=== PATIENT | male | born 1990 | race Caucasian/White ===

== ENCOUNTER 2018-04-14 06:21 | Inpatient (IN) | END 2018-04-17 17:41 | DRG 871 ==

== ENCOUNTER 2018-04-18 02:23 | Inpatient (IN) | END 2018-04-19 16:42 | disposition home or self-care (01) | DRG 309 ==

== ENCOUNTER 2018-07-03 15:00 | Inpatient (IN) | payer OTHER ==
[~2018-07-03] VITALS: Ht 172.7 cm; Wt 77.5 kg
[~2018-07-03 15:00] MED LIST: ACET325T45 PO; ASCO500C7 PO; ATOR20TA38 PO; BACL10TA PO; BEN50 PO; BISA10SU22 RC; DIAZ5TAB4 PO; DICL100G37 TOP; DOCU-159 PO; DOXY100T20 PO; FENO135C4 PO; FLUO10CA17 PO; GABA300C16 PO; GLUC-158 PO; GUAI1CAP9 PO; HYDR-3980 PO; IBUP200C11 PO; INSU100C SQ; LEVO750T25 PO; LINA290C PO; LOPE2CAP PO; MAGN400O19 PO; METF-849 PO; MORP15TA92 PO; PHEN1SUP80 PR; POLY17PO6 PO; RANI300T PO; SITA100T11 PO; TAMS0.4C2 PO; TIZA4CAP6 PO; UDMYL PO; ZOLP10TA5 PO
[2018-07-03] MEDS ORDERED: SOD CHLORIDE 0.9% 1,000 ML IV STA ×2 (15:22→19:18)
[2018-07-03] MEDS ORDERED: BACL10TA PO (17:15)
[2018-07-03] MEDS ORDERED: PHEN1SUP80 PR (17:16)
[2018-07-03] MEDS ORDERED: ASC500 PO (17:17)
[2018-07-03] MEDS ORDERED: RANI300T PO (17:18)
[2018-07-03] MEDS ORDERED: BISA10SU75 PR (17:18)
[2018-07-03] MEDS ORDERED: CLI60SOL TOP (17:19)
[2018-07-03] MEDS ORDERED: GABA300C16 PO (17:19)
[2018-07-03] MEDS ORDERED: TAMS0.4C2 PO (17:20)
[2018-07-03] MEDS ORDERED: FLUO10CA17 PO (17:20)
[2018-07-03] MEDS ORDERED: FENO135C4 PO (17:22)
[2018-07-03] MEDS ORDERED: [UNRECOGNIZED DRUG - CODE] PO (17:22)
[2018-07-03] MEDS ORDERED: ATOR10TA65 PO (17:23)
[2018-07-03] MEDS ORDERED: RISP2TAB3 PO (17:24)
[2018-07-03] MEDS ORDERED: LINA290C PO (17:25)
[2018-07-03] MEDS ORDERED: TIZA4CAP PO (17:26)
[2018-07-03] MEDS ORDERED: ZOLP10TA5 PO (17:26)
[2018-07-03] MEDS ORDERED: POLY17PO6 PO (17:27)
[2018-07-03] MEDS ORDERED: HYDR-3980 PO (17:28)
[2018-07-03] MEDS ORDERED: DIAZ5TAB4 PO (17:29)
[2018-07-03] MEDS ORDERED: PHEN57OI RC (17:32)
[2018-07-03] MEDS ORDERED: UDMYL PO (17:34)
[2018-07-03] MEDS ORDERED: MIDO10TA PO (17:35)
[2018-07-03] MEDS ORDERED: IPRA3AMP29 INHALATION (17:35)
[2018-07-03] MEDS ORDERED: MAGN400O19 PO (17:36)
[2018-07-03] MEDS ORDERED: METH10TA2 PO (17:37)
[2018-07-03] MEDS ORDERED: [UNRECOGNIZED DRUG - REMARK] PO (17:40)
[2018-07-03] MEDS ORDERED: [UNRECOGNIZED DRUG - CODE] PO (17:41)
[2018-07-03] MEDS ORDERED: SOD CHLORIDE 0.9% 1,000 ML IV SCH (19:20)
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
[2018-07-03] MEDS ORDERED: ONDANSETRON 4 MG INJ IV PRN ×2 (19:30→20:00)
[2018-07-03] MEDS ORDERED: ERTAPENEM SODIUM 1 GM in SOD CHLORIDE 0.9% 100 ML IVPB ONE (19:30)
[2018-07-03] MEDS ORDERED: ACETAMINOPHEN 325 MG TAB PO PRN (19:30)
[2018-07-03] MEDS ORDERED: METOCLOPRAMIDE 10 MG INJ IV PRN (20:00)
[2018-07-03] MEDS ORDERED: BISACODYL (EC) 5 MG TAB PO PRN (20:00)
[2018-07-03] MEDS ORDERED: DOCUSATE SODIUM 100 MG CAP PO PRN (20:00)
[2018-07-03] MEDS ORDERED: NACL 0.9% 3 ML SYG IV SCH (20:00)
[2018-07-03] MEDS: DEXTROSE 5%-0.45% NACL 1,000 ML IV SCH (20:11)
[2018-07-03] MEDS ORDERED: POTASSIUM CHLORIDE (SR) 20 MEQ TAB PO STA (20:53)
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
[2018-07-03] MEDS ORDERED: morphine 2 MG INJ IV STA (21:49)
[2018-07-04] VITALS (22 sets, daily range): BP systolic 94–145; BP diastolic 52–116; PULSE 84–108; RESP 16–20; Ht 172.7 cm; Wt 77.5 kg
[2018-07-04] MEDS: RISPERIDONE 2 MG TAB PO SCH (00:05)
[2018-07-04] MEDS: POTASSIUM CHLORIDE 100 ML IVPB SCH ×2 (03:28→05:58)
[2018-07-04] MEDS: morphine 2 MG INJ IV PRN ×3 (03:32→18:29)
[2018-07-04] MEDS: DEXTROSE 5%-0.45% NACL 1,000 ML IV SCH ×2 (05:58→15:37)
[2018-07-04] MEDS ORDERED: VANCOMYCIN IV PER PHARMACY XX SCH (07:30)
[2018-07-04] MEDS: PIPER-TAZO 3.375 GM IV (PMX) 100 ML IVPB SCH ×3 (08:29→17:04)
[2018-07-04] MEDS: ENOXAPARIN 40 MG/0.4 ML SYG SC SCH (08:35)
[2018-07-04] MEDS ORDERED: VANCOMYCIN HCL 1.5 GM in SOD CHLORIDE 0.9% 250 ML IVPB SCH (09:00)
[2018-07-04] MEDS: INSULIN ASPART [NOVOLOG] 3 ML PEN SC SCH ×3 (11:28→23:32)
[2018-07-04] MEDS ORDERED: GLUCAGON 1 MG INJ IM PRN (11:30)
[2018-07-04] MEDS ORDERED: GLUCOSE GEL 15 GRAM TUBE BUCCAL PRN (11:30)
[2018-07-04] MEDS ORDERED: DEXTROSE 50% 50 ML SYRINGE IV PRN (11:30)
[2018-07-04] MEDS ORDERED: GLUCOSE GEL 15 GRAM TUBE PO PRN ×2 (11:30)
[2018-07-04] MEDS: KETOROLAC 15 MG INJ IV PRN ×2 (14:31→21:01)
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
[2018-07-04] MEDS ORDERED: VANCOMYCIN 1 GM 250 ML IVPB SCH (21:00)
[2018-07-04] MEDS: ZOLPIDEM 5 MG TAB PO PRN (23:15)
[2018-07-05] VITALS (24 sets, daily range): BP systolic 98–127; BP diastolic 63–84; PULSE 63–96; RESP 20–23
[2018-07-05] MEDS: morphine 2 MG INJ IV PRN ×3 (01:06→09:05)
[2018-07-05] MEDS: ACCU-CHEK XX SCH (02:00)
[2018-07-05] MEDS: INSULIN ASPART [NOVOLOG] 3 ML PEN SC SCH ×3 (06:00→17:21)
[2018-07-05] MEDS: BACLOFEN 10 MG TAB PO SCH ×3 (09:05→21:05)
[2018-07-05] MEDS: GABAPENTIN 300 MG CAP PO SCH ×3 (09:05→21:06)
[2018-07-05] MEDS: ENOXAPARIN 40 MG/0.4 ML SYG SC SCH (09:06)
[2018-07-05] MEDS: METHADONE 10 MG TAB PO SCH ×2 (09:10→21:06)
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
[2018-07-05] MEDS: HYDROCODONE/APAP (5/325) TAB PO PRN ×2 (15:55→21:25)
[2018-07-05] MEDS: RISPERIDONE 2 MG TAB PO SCH (21:00)
[2018-07-05] MEDS: TIZANIDINE 2 MG TAB PO PRN (21:05)
[2018-07-05] MEDS: SENNA TAB PO SCH (21:06)
[2018-07-05] MEDS: ZOLPIDEM 5 MG TAB PO PRN (21:28)
[2018-07-06] VITALS (22 sets, daily range): BP systolic 98–130; BP diastolic 66–84; PULSE 51–75; RESP 20–23
[2018-07-06] MEDS: ACETAMINOPHEN 325 MG TAB PO PRN ×2 (00:17→03:59)
[2018-07-06] MEDS: DIAZEPAM 5 MG TAB PO PRN ×2 (00:17→23:18)
[2018-07-06] MEDS: INSULIN ASPART [NOVOLOG] 3 ML PEN SC SCH ×5 (00:25→23:21)
[2018-07-06] MEDS: ACCU-CHEK XX SCH (02:00)
[2018-07-06] MEDS: HYDROCODONE/APAP (5/325) TAB PO PRN ×3 (03:58→19:30)
[2018-07-06] MEDS: GABAPENTIN 300 MG CAP PO SCH ×3 (09:01→21:01)
[2018-07-06] MEDS: METHADONE 10 MG TAB PO SCH ×2 (09:01→21:56)
[2018-07-06] MEDS: BACLOFEN 10 MG TAB PO SCH ×3 (09:01→21:00)
[2018-07-06] MEDS: POLYETHYLENE GLYCOL 17 GM PACKET PO SCH (09:01)
[2018-07-06] MEDS: TIZANIDINE 2 MG TAB PO PRN (09:02)
[2018-07-06] MEDS: SENNA TAB PO SCH ×2 (09:02→21:01)
[2018-07-06] MEDS: ENOXAPARIN 40 MG/0.4 ML SYG SC SCH (10:02)
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
[2018-07-06] MEDS: DICLOFENAC SODIUM 1% GEL 100 GM TUBE TP SCH ×2 (17:17→21:02)
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
[2018-07-06] MEDS: RISPERIDONE 2 MG TAB PO SCH (21:02)
[2018-07-06] MEDS: ZOLPIDEM 5 MG TAB PO PRN (21:56)
[2018-07-07] VITALS (23 sets, daily range): BP systolic 107–122; BP diastolic 61–76; PULSE 58–92; RESP 18–35
[2018-07-07] MEDS: ACCU-CHEK XX SCH (02:00)
[2018-07-07] MEDS: INSULIN ASPART [NOVOLOG] 3 ML PEN SC SCH ×3 (05:39→17:48)
[2018-07-07] MEDS: DICLOFENAC SODIUM 1% GEL 100 GM TUBE TP SCH ×4 (08:11→21:41)
[2018-07-07] MEDS: SENNA TAB PO SCH ×2 (09:00→21:35)
[2018-07-07] MEDS: METHADONE 10 MG TAB PO SCH ×2 (09:00→21:40)
[2018-07-07] MEDS: GABAPENTIN 300 MG CAP PO SCH ×3 (09:00→21:34)
[2018-07-07] MEDS: ENOXAPARIN 40 MG/0.4 ML SYG SC SCH (09:00)
[2018-07-07] MEDS: POLYETHYLENE GLYCOL 17 GM PACKET PO SCH (09:00)
[2018-07-07] MEDS: BACLOFEN 10 MG TAB PO SCH ×3 (09:00→21:35)
--- NOTE | 2018-07-07 09:16 | PREAC ---
Date/Time of Note Date/Time of Note DATE: 07/07/18 TIME: 09:16 Anesthesia Eval and Record Evaluation Time Pre-Procedure Interview DATE: 07/07/18 TIME: 09:16 Age 28 Sex male NPO: 8 hrs Preoperative diagnosis dysphagia Planned procedure PEG Past Medical History Past Medical History: Includes Cardio: Dyslipidemia Pulm: Other (resp failure) Neuro: Other (paraplegia) Heme: Anemia Surgery & Anesthesia Issues No known issue Meds Anticoagulation: No Beta Rubens within 24 hr: No Reason Beta Rubens not given: Pt. not on B-Rubens Reported Medications Calcium Phosphate Trib/Vit D3 (Calcium + Vitamin D3 Gummies) 1 Each Tab.chew, 2 EACH PO DAILY, TAB.CHEW 07/03/18 [Marijuana Cook] No Conflict Check, 2 PO QHS GIVE 2 COOKIES QHS AND PRN FOR PAIN MANAGEMENT. DO NOT COMBINE WITH OTHER MARIJUANA PRODUCTS. 07/03/18 Methadone Hcl* (Methadone*) 10 Mg Tab, 10 MG PO Q12, TAB 07/03/18 Magnesium Hydroxide* (Milk Of Magnesia*) 400 Mg/5 Ml Oral.susp, 30 ML PO Q24H PRN for NEEDED, ML 07/03/18 Midodrine* (Midodrine*) 10 Mg Tablet, 10 MG PO TID, TAB 07/03/18 Ipratropium-Albuterol (Ipratropium-Albuterol) 0.5-3 Mg/3 Ml Ampul.neb, 3 ML INHALATION Q4 PRN for prn, #30 VIAL 07/03/18 Magaldrate/Simethicone* (Mag-Al Plus Suspension*) 30 Ml Oral.susp, 30 ML PO BID PRN for GASTROINTESTINAL UPSET, ML 07/03/18 Phenyleph/Mineral Oil/Petrolat (Major-Prep Hemorrhoidal Oint) Unknown Strength Oint.appl, 0.25 RC DAILY Apply to ANAL area one time a day as needed for hemorrhoids 07/03/18 Diazepam* (Diazepam*) 5 Mg Tablet, 5 MG PO TID PRN for PRN, TAB 07/03/18 Hydrocodone/Acetaminophen ([place] 10-325 Tablet) 1 Each Tablet, 1 EACH PO Q3H PRN for PAIN 7-1010, TAB 07/03/18 Polyethylene Glycol* (Miralax*) 17 Gm Powd.pack, 17 GM PO BID, #60 PACKET 3/5/19 Zolpidem Tartrate* (Zolpidem Tartrate*) 10 Mg Tablet, 10 MG PO QHS PRN for INSOMNIA, #30 TAB 07/03/18 Tizanidine Hcl* (Zanaflex*) 4 Mg Capsule, 6 MG PO Q8H PRN for SPASTICITY, CAP 07/03/18 Linaclotide (LINZESS) 290 Mcg Capsule, 290 MCG PO DAILY, #30 CAP 07/03/18 Risperidone* (Risperidone*) 2 Mg Tablet, 4 MG PO QHS, TAB 07/03/18 Atorvastatin Calcium (Atorvastatin Calcium) 10 Mg Tablet, 10 MG PO QHS, #30 TAB 07/03/18 Tetracycline Hcl* (Tetracycline Hcl*) 500 Mg Cap, 500 MG PO BID, CAP 07/03/18 Fenofibric Acid (Choline) (Fenofibric Acid) 135 Mg Capsule.dr, 270 MG PO QHS, TAB 07/03/18 Tamsulosin Hcl* (Tamsulosin Hcl*) 0.4 Mg Cap.er.24h, 0.4 MG PO HS, CAP 07/03/18 Fluoxetine Hcl* (Fluoxetine Hcl*) 10 Mg Capsule, 10 MG PO DAILY, CAP 07/03/18 Clindamycin* Topical (Clindamycin* Topical) 1 %-60 Ml Solution, 1 APPLIC TOP BID , EA 07/03/18 Gabapentin* (Gabapentin*) 300 Mg Capsule, 300 MG PO TID, #90 CAP 07/03/18 Ranitidine Hcl* (Ranitidine Hcl*) 300 Mg Tablet, 300 MG PO QHS, #30 TAB 07/03/18 Bisacodyl* (Bisacodyl*) 10 Mg Supp, 10 MG OR DAILY, SUPP 07/03/18 Ascorbic Acid (Vitamin C) 500 Mg Tab, 500 MG PO BID, TAB 07/03/18 Phenylephrine HCl/[place] Butter* (Preparation H* Suppository) 1 Each Supp.rect, 1 EACH OR QHS, SUPP.RECT 07/03/18 Baclofen* (Baclofen*) 10 Mg Tablet, 10 MG PO TID, TAB 07/03/18 Discontinued Reported Medications Zolpidem Tartrate* (Zolpidem Tartrate*) 10 Mg Tablet, 10 MG PO QHS PRN for INSOMNIA, #30 TAB 04/14/18 Ibuprofen* (Advil*) 200 Mg Capsule, 200 MG PO Q6H PRN for PAIN, CAP 04/14/18 Diclofenac Sodium* (Voltaren* Gel) 1% -100 Gm Gel, 2 GM TOP QID, #1 TUB 04/14/18 Loperamide Hcl* (Imodium*) 2 Mg Capsule, 2 MG PO Q6H PRN for DIARRHEA, CAP MAX 16 mg/day 04/14/18 Acetaminophen* (Acetaminophen*) 325 Mg Tablet, 325 MG PO Q4H PRN for PAIN AND OR ELEVATED TEMP, #30 TAB 04/14/18 Diphenhydramine Hcl* (Benadryl*) 50 Mg Cap, 50 MG PO Q6 PRN for ITCHING, CAP 04/14/18 Magaldrate/Simethicone* (Mag-Al Plus Suspension*) 30 Ml Oral.susp, 30 ML PO BID PRN for GASTROINTESTINAL UPSET, ML 04/14/18 Hydrocodone/Acetaminophen ([place] 10-325 Tablet) 1 Each Tablet, 1 EACH PO, TAB 04/14/18 Polyethylene Glycol* (Miralax*) 17 Gm Powd.pack, 17 GM PO BID, #60 PACKET 04/14/18 Linaclotide (LINZESS) 290 Mcg Capsule, 290 MCG PO DAILY, #30 CAP 04/14/18 Diazepam* (Diazepam*) 5 Mg Tablet, 5 MG PO TID, TAB 04/14/18 Morphine Sulfate* (Ms Contin*) 15 Mg Tablet.sa, 15 MG PO Q12, TAB 04/14/18 Magnesium Hydroxide* (Milk Of Magnesia*) 400 Mg/5 Ml Oral.susp, 30 ML PO BID, ML 04/14/18 Insulin Lispro (Humalog) 100 Unit/1 Ml Cartridge, 100 UNIT SQ SS, EA 04/14/18 Metformin* (Glucophage*) 500 Mg Tab, 500 MG PO TID, #60 TAB 04/14/18 Diazepam* (Diazepam*) 5 Mg Tablet, 5 MG PO BID, TAB 04/14/18 Docusate Sodium* (Docusate Sodium*) 100 Mg Capsule, 100 MG PO BID, #60 CAP 04/14/18 Tizanidine Hcl* (Tizanidine Hcl*) 4 Mg Capsule, 5.5 MG PO Q6H PRN for SPASTICITY, CAP 04/14/18 Guaifenesin/P-Ephed Hcl (Respaire-30 Capsule) 1 Each Capsule, 2 EACH PO, CAP 04/14/18 Atorvastatin Calcium* (Atorvastatin Calcium*) 20 Mg Tablet, 20 MG PO QHS, #30 TAB 04/14/18 Bisacodyl (FAST RELIEF LAXATIVE) 10 Mg Supp.rect, 10 MG RC QPM, SUPP.RECT 04/14/18 Phenylephrine HCl/[place] Butter* (Preparation H* Suppository) 1 Each Supp.rect, 1 EACH OR QHS, SUPP.RECT 04/14/18 Sitagliptin* (Januvia*) 100 Mg Tablet, 100 MG PO DAILY, #30 TAB 04/14/18 Fenofibric Acid (Choline) (Fenofibric Acid) 135 Mg Capsule.dr, 170 MG PO QHS, TAB 04/14/18 Glucosam/Msm/Chond/Hyaluron Ac (SV GLUCOSAMINE-CHONDROITIN TAB) 1 Each Tablet, 1 EACH PO QHS, TAB 04/14/18 Tamsulosin Hcl* (Tamsulosin Hcl*) 0.4 Mg Cap.er.24h, 0.4 MG PO HS, CAP 04/14/18 Fluoxetine Hcl* (Fluoxetine Hcl*) 10 Mg Capsule, 10 MG PO DAILY, CAP 04/14/18 Gabapentin* (Gabapentin*) 300 Mg Capsule, 300 MG PO TID, #90 CAP 04/14/18 Ranitidine Hcl* (Ranitidine Hcl*) 300 Mg Tablet, 300 MG PO HS, #30 TAB 04/14/18 Ascorbic Acid* (Vitamin C*) 500 Mg Capsule.sa, 500 MG PO BID, CAP 04/14/18 Baclofen* (Lioresal*) 10 Mg Tab, 30 MG PO Q8H PRN for MUSCLE SPASMS, TAB 04/14/18 Discontinued Scripts Doxycycline Hyclate* (Doxycycline Hyclate*) 100 Mg Tablet.dr, 100 MG PO BID for 5 Days, #5 TAB Prov:BENITO MCDONOUGH S. 04/19/18 Levofloxacin* (Levaquin*) 750 Mg Tablet, 750 MG PO DAILY for 5 Days, #5 TAB Prov:BENITO MCDONOUGH S. 04/19/18 Current Medications IV Flush (NS 3 ml) 3 ml PER PROTOCOL IV ; Start 07/03/18 at 20:00 Ondansetron HCl (Zofran Inj) 4 mg Q6H PRN IV NAUSEA/VOMITING; Start 07/03/18 at 20:00 Metoclopramide HCl (Reglan) 10 mg Q6H PRN IV NAUSEA/VOMITING; Start 07/03/18 at 20:00 Acetaminophen (Tylenol Tab) 650 mg Q6H PRN PO .PAIN 1-3 OR TEMP Last administered on 07/06/18at 03:59; Admin Dose 650 MG; Start 07/03/18 at 20:00 Docusate Sodium (Colace) 100 mg Q12H PRN PO .CONSTIPATION; Start 07/03/18 at 20:00 Bisacodyl (Dulcolax) 5 mg DAILY PRN PO .CONSTIPATION; Start 07/03/18 at 20:00 Enoxaparin Sodium (Lovenox) 40 mg DAILY SC Last administered on 07/06/18at 10:02; Admin Dose 40 MG; Start 07/04/18 at 09:00 Diagnostic Test (Pha) (Accu-Chek) 1 ea 02 XX ; Start 07/05/18 at 02:00 Insulin Aspart (Novolog Insulin Pen) NOVOLOG *MILD* ALGORI... Q6 SC Last administered on 07/06/18at 17:44; Admin Dose 1 UNIT; Start 07/04/18 at 12:00 Miscellaneous Information 1 ea NOTE XX ; Start 07/04/18 at 11:30 Glucose (Glutose) 15 gm Q15M PRN PO DECREASED GLUCOSE; Start 07/04/18 at 11:30 Glucose (Glutose) 22.5 gm Q15M PRN PO DECREASED GLUCOSE; Start 07/04/18 at 11:30 Dextrose (D50w Syringe) 25 ml Q15M PRN IV DECREASED GLUCOSE; Start 07/04/18 at 11:30 Dextrose (D50w Syringe) 50 ml Q15M PRN IV DECREASED GLUCOSE; Start 07/04/18 at 11:30 Glucagon (Glucagen) 1 mg Q15M PRN IM DECREASED GLUCOSE; Start 07/04/18 at 11:30 Glucose (Glutose) 15 gm Q15M PRN BUCCAL DECREASED GLUCOSE; Start 07/04/18 at 11:30 Zolpidem Tartrate (Ambien) 10 mg QHS PRN PO INSOMNIA Last administered on 07/06/18at 21:56; Admin Dose 10 MG; Start 07/04/18 at 23:00 Baclofen (Lioresal) 10 mg TID PO Last administered on 07/06/18 21:00; Admin Dose 10 MG; Start 07/05/18 at 09:00 Diazepam (Valium) 5 mg TID PRN PO ANXIETY Last administered on 07/06/18 23:18; Admin Dose 5 MG; Start 07/04/18 at 23:00 Gabapentin (Neurontin) 300 mg TID PO Last administered on 07/06/18 21:01; Admin Dose 300 MG; Start 07/05/18 at 09:00 Methadone HCl (Methadone) 10 mg Q12 PO Last administered on 07/06/18 21:56; Admin Dose 10 MG; Start 07/05/18 at 09:00 Risperidone (Risperdal) 4 mg QHS PO Last administered on 07/06/18 21:02; Admin Dose 4 MG; Start 07/04/18 at 23:00 Tizanidine HCl (Zanaflex) 6 mg Q8H PRN PO SPASTICITY Last administered on 07/06/18 09:02; Admin Dose 6 MG; Start 07/04/18 at 23:00 Acetaminophen/ Hydrocodone Bitart ([place] (5/325)) 1 tab Q4H PRN PO SEVERE PAIN LEVEL 7-10 Last administered on 07/06/18 19:30; Admin Dose 1 TAB; Start 07/05/18 at 15:30 Senna (Senokot) 2 tab BID PO Last administered on 07/06/18 21:01; Admin Dose 2 TAB; Start 07/05/18 at 21:00 Polyethylene Glycol (Miralax) 17 gm DAILY PO Last administered on 07/06/18 09:01; Admin Dose 17 GM; Start 07/06/18 at 09:00 Diclofenac Sodium (Voltaren 1% Gel) 2 gm QID TP Last administered on 07/07/18 08:11; Admin Dose 2 GM; Start 07/06/18 at 17:00 Potassium Chloride 50 ml @ 50 mls/hr Q1H IVPB ; Start 07/07/18 at 09:30; Stop 07/07/18 at 12:29; Status UNV Sodium Chloride 1,000 ml @ 75 mls/hr [id number] IV ; Start 07/07/18 at 09:30; Status UNV Meds reviewed: Yes Allergies Coded Allergies: No Known Allergy (Unverified , 07/03/18) Allergies Reviewed: Yes Labs/Studies Labs Reviewed: Reviewed by anesthesiologist Result Diagram: 07/07/18 0737 07/07/18 0737 Laboratory Tests 07/07/18 07:37 test: N/A Studies: ECG Pre-procedure Exam Last vitals Vital Signs Date Temp Pulse Resp B/P (MAP) Pulse Ox O2 O2 Flow FiO2 Time Delivery Rate 07/07/18 98.3 91 19 122/74 94 08:09 (90) 07/07/18 30 05:01 07/07/18 Trach 00:00 Collar Airway: Adequate mouth opening, Adequate thyromental dist Mallampati: Mallampati II Teeth: Normal Lung: Normal Heart: Normal ASA Physical Status ASA physical status: 3 Emergency: None Planned Anesthetic General/MAC: MAC Pre-operative Attestations Prior to commencing anesthesia and surgery, the patient was re-evaluated, there was verification of: *The patient's identity *The results of appropriate recent lab work and preoperative vital signs *The above evaluation not changing prior to induction *Anesthetic plan, risk benefits, alternative and complications discussed with patient/family; questions answered; patient/family understands, accepts and wishes to proceed. NIKHIL VALADEZ Jul 07, 2018 09:16
--- NOTE | 2018-07-07 09:51 | OPR ---
Date/Time of Note Date/Time of Note DATE: 07/07/18 TIME: 09:48 Operative Report Preoperative Diagnosis dysphagia Postoperative Diagnosis same Operation/Procedure Performed egd and peg placement Surgeon see signature line Server Engineer none Anesthesia Type: MAC Anesthesiologist: NIKHIL VALADEZ Estimated Blood Loss: none Transfusion none Specimen none Grafts/Implants none Complications none Pt Condition Post Procedure: stable Disposition: other Indications dysphagia Procedure Description egd peg placement egd performed fallowed by percutneous endoscopic gastrostomy BIANCA RICHARD MD Jul 07, 2018 09:50
[2018-07-07] MEDS ORDERED: CEFAZOLIN 2 GM/50 ML (PMX) 50 ML IVPB ONE ×2 (09:57→11:00)
--- NOTE | 2018-07-07 10:28 | PAC ---
Date/Time of Note Date/Time of Note DATE: 07/07/18 TIME: 10:28 Post-Anesthesia Notes Post-Anesthesia Note Last documented vital signs Vital Signs Date Temp Pulse Resp B/P (MAP) Pulse Ox O2 O2 Flow FiO2 Time Delivery Rate 07/07/18 98.3 91 19 122/74 94 08:09 (90) 07/07/18 30 05:01 07/07/18 Trach 00:00 Collar Activity: WNL Respiratory function: WNL Cardiovascular function: WNL Mental status: Baseline Pain reasonably controlled: Yes Hydration appropriate: Yes Nausea/Vomiting absent: Yes NIKHIL VALADEZ Jul 07, 2018 10:28
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
[2018-07-07] MEDS: POTASSIUM CHLORIDE 50 ML IVPB SCH ×3 (11:44→15:00)
[2018-07-07] MEDS: SOD CHLORIDE 0.9% 1,000 ML IV SCH (11:44)
[2018-07-07] MEDS: BISACODYL 10 MG SUPP PR PRN (16:43)
[2018-07-07] MEDS: HYDROCODONE/APAP (5/325) TAB PO PRN (16:49)
--- NOTE | 2018-07-07 17:17 | RADRPT ---
Vent Rate: 79 bpm RR Interval: 0 msec TX Interval: 146 msec QRS Duration: 82 msec QT Interval: 372 msec QTC Interval: 426 msec P-R-T [place]: 69 - 85 - 68 degrees Normal sinus rhythm Nonspecific T wave abnormality Abnormal ECG Electronically Signed By: Rhys Garner
[2018-07-07] MEDS ORDERED: VENLAFAXINE (XR) 75 MG CAP PO SCH (21:00)
[2018-07-07] MEDS: VENLAFAXINE (XR) 75 MG CAP PO SCH (21:35)
[2018-07-07] MEDS: RISPERIDONE 2 MG TAB PO SCH (21:35)
[2018-07-07] MEDS: traZODone 50 MG TAB PO SCH (21:36)
[2018-07-08] VITALS (20 sets, daily range): BP systolic 113–135; BP diastolic 69–81; PULSE 67–92; RESP 16–20
[2018-07-08] MEDS: SOD CHLORIDE 0.9% 1,000 ML IV SCH ×2 (00:16→12:10)
[2018-07-08] MEDS: DIAZEPAM 5 MG TAB PO PRN ×2 (00:22→23:49)
[2018-07-08] MEDS: ACCU-CHEK XX SCH (02:00)
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
[2018-07-08] MEDS: INSULIN ASPART [NOVOLOG] 3 ML PEN SC SCH ×4 (06:00→17:34)
[2018-07-08] MEDS: ACETAMINOPHEN 325 MG TAB PO PRN (06:51)
[2018-07-08] MEDS: DEXTROSE 50% 50 ML SYRINGE IV PRN ×2 (07:00→12:06)
[2018-07-08] MEDS: BACLOFEN 10 MG TAB PO SCH ×3 (08:38→20:44)
[2018-07-08] MEDS: GABAPENTIN 300 MG CAP PO SCH ×3 (08:39→20:44)
[2018-07-08] MEDS: SENNA TAB PO SCH ×2 (08:39→20:43)
[2018-07-08] MEDS: METHADONE 10 MG TAB PO SCH ×2 (08:39→20:44)
[2018-07-08] MEDS: POLYETHYLENE GLYCOL 17 GM PACKET PO SCH (08:39)
[2018-07-08] MEDS: DICLOFENAC SODIUM 1% GEL 100 GM TUBE TP SCH ×4 (08:48→20:45)
[2018-07-08] MEDS: ENOXAPARIN 40 MG/0.4 ML SYG SC SCH (08:48)
[2018-07-08] MEDS: HYDROCODONE/APAP (5/325) TAB PO PRN ×2 (10:10→18:37)
[2018-07-08] MEDS ORDERED: POTASSIUM CHLORIDE 20 MEQ POWDER FOR ORAL SOLN PO ONE (10:30)
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
[2018-07-08] MEDS: NA PHOSPHATE/BIPHOS 133 ML ENEMA PR PRN (20:42)
[2018-07-08] MEDS: RISPERIDONE 2 MG TAB PO SCH (20:42)
[2018-07-08] MEDS: traZODone 50 MG TAB PO SCH (20:43)
[2018-07-08] MEDS: VENLAFAXINE (XR) 75 MG CAP PO SCH (20:43)
[2018-07-09] VITALS (23 sets, daily range): BP systolic 120–136; BP diastolic 72–85; PULSE 57–98; RESP 16–20
[2018-07-09] MEDS: SOD CHLORIDE 0.9% 1,000 ML IV SCH ×2 (01:30→14:50)
[2018-07-09] MEDS: HYDROCODONE/APAP (5/325) TAB PO PRN (01:44)
[2018-07-09] MEDS: ACCU-CHEK XX SCH (02:00)
[2018-07-09] MEDS: INSULIN ASPART [NOVOLOG] 3 ML PEN SC SCH ×5 (06:00→23:51)
[2018-07-09] MEDS: POLYETHYLENE GLYCOL 17 GM PACKET PO SCH (09:00)
[2018-07-09] MEDS: BACLOFEN 10 MG TAB PO SCH ×3 (09:12→20:46)
[2018-07-09] MEDS: GABAPENTIN 300 MG CAP PO SCH ×3 (09:12→20:46)
[2018-07-09] MEDS: SENNA TAB PO SCH ×2 (09:12→20:46)
[2018-07-09] MEDS: METHADONE 10 MG TAB PO SCH ×2 (09:13→20:46)
[2018-07-09] MEDS: ENOXAPARIN 40 MG/0.4 ML SYG SC SCH (09:24)
[2018-07-09] MEDS ORDERED: LORAZEPAM 2 MG INJ IV PRN (10:30)
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
[2018-07-09] MEDS: DICLOFENAC SODIUM 1% GEL 100 GM TUBE TP SCH ×4 (12:19→20:47)
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
[2018-07-09] MEDS: traZODone 50 MG TAB PO SCH (20:46)
[2018-07-09] MEDS: LEVETIRACETAM 500 MG TAB PO SCH (20:46)
[2018-07-09] MEDS: RISPERIDONE 2 MG TAB PO SCH (20:47)
[2018-07-09] MEDS: VENLAFAXINE (XR) 75 MG CAP PO SCH (20:47)
[2018-07-10] VITALS (23 sets, daily range): BP systolic 109–154; BP diastolic 73–91; PULSE 90–140; RESP 20–24
[2018-07-10] MEDS: ACCU-CHEK XX SCH (02:00)
[2018-07-10] MEDS: SOD CHLORIDE 0.9% 1,000 ML IV SCH ×2 (04:10→17:06)
[2018-07-10] MEDS: INSULIN ASPART [NOVOLOG] 3 ML PEN SC SCH ×3 (06:00→18:00)
[2018-07-10] MEDS: POLYETHYLENE GLYCOL 17 GM PACKET PO SCH (09:00)
[2018-07-10] MEDS: SENNA TAB PO SCH ×2 (09:00→21:19)
[2018-07-10] MEDS: BACLOFEN 10 MG TAB PO SCH ×3 (09:25→21:19)
[2018-07-10] MEDS: GABAPENTIN 300 MG CAP PO SCH ×3 (09:25→21:19)
[2018-07-10] MEDS: METHADONE 10 MG TAB PO SCH ×2 (09:26→21:19)
[2018-07-10] MEDS: LEVETIRACETAM 500 MG TAB PO SCH ×2 (09:26→21:19)
[2018-07-10] MEDS: DICLOFENAC SODIUM 1% GEL 100 GM TUBE TP SCH ×4 (09:27→21:20)
[2018-07-10] MEDS: ENOXAPARIN 40 MG/0.4 ML SYG SC SCH (09:48)
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
[2018-07-10] MEDS: HYDROCODONE/APAP (5/325) TAB PO PRN ×2 (11:44→19:06)
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
--- NOTE | 2018-07-10 13:07 | CONS ---
Consultation Date/Type/Reason Admit Date/Time Jul 03, 2018 at 19:21 Type of Consult Neurology Requesting Provider: BENITO MCDONOUGH Date/Time of Note DATE: 07/10/18 TIME: 13:07 Exam/Review of Systems Exam Vitals Vital Signs Date Temp Pulse Resp B/P (MAP) Pulse Ox O2 O2 Flow FiO2 Time Delivery Rate 07/10/18 121 12:48 07/10/18 20 100 30 11:30 07/10/18 98.4 154/91 11:17 (112) 07/10/18 Mechanical 04:00 Ventilator Intake and Output 07/09/18 07/09/18 07/10/18 1515:00 23:00 07:00 IntakeIntake Total 1750 ml 830 ml OutputOutput Total 200 ml 1500 ml BalanceBalance 1550 ml -670 ml Results Result Diagram: 07/08/18 0753 07/08/18 0753 Results 24hrs Laboratory Tests Test 07/09/18 16:36 07/09/18 17:24 07/09/18 23:50 07/10/18 05:53 Phosphorus Level 4.1 Bedside Glucose 116 130 101 Test 07/10/18 11:42 Bedside Glucose 125 Medications Medication Current Medications IV Flush (NS 3 ml) 3 ml PER PROTOCOL IV ; Start 07/03/18 at 20:00 Ondansetron HCl (Zofran Inj) 4 mg Q6H PRN IV NAUSEA/VOMITING; Start 07/03/18 at 20:00 Metoclopramide HCl (Reglan) 10 mg Q6H PRN IV NAUSEA/VOMITING; Start 07/03/18 at 20:00 Acetaminophen (Tylenol Tab) 650 mg Q6H PRN PO .PAIN 1-3 OR TEMP Last administered on 07/08/18at 06:51; Admin Dose 650 MG; Start 07/03/18 at 20:00 Docusate Sodium (Colace) 100 mg Q12H PRN PO .CONSTIPATION; Start 07/03/18 at 20:00 Enoxaparin Sodium (Lovenox) 40 mg DAILY SC Last administered on 07/10/18at 09:48; Admin Dose 40 MG; Start 07/04/18 at 09:00 Diagnostic Test (Pha) (Accu-Chek) 1 ea 02 XX ; Start 07/05/18 at 02:00 Insulin Aspart (Novolog Insulin Pen) NOVOLOG *MILD* ALGORI... Q6 SC Last administered on 07/06/18 17:44; Admin Dose 1 UNIT; Start 07/04/18 at 12:00 Miscellaneous Information 1 ea NOTE XX ; Start 07/04/18 at 11:30 Glucose (Glutose) 15 gm Q15M PRN PO DECREASED GLUCOSE; Start 07/04/18 at 11:30 Glucose (Glutose) 22.5 gm Q15M PRN PO DECREASED GLUCOSE; Start 07/04/18 at 11:30 Dextrose (D50w Syringe) 25 ml Q15M PRN IV DECREASED GLUCOSE Last administered on 07/08/18 12:06; Admin Dose 25 ML; Start 07/04/18 at 11:30 Dextrose (D50w Syringe) 50 ml Q15M PRN IV DECREASED GLUCOSE; Start 07/04/18 at 11:30 Glucagon (Glucagen) 1 mg Q15M PRN IM DECREASED GLUCOSE; Start 07/04/18 at 11:30 Glucose (Glutose) 15 gm Q15M PRN BUCCAL DECREASED GLUCOSE; Start 07/04/18 at 11:30 Baclofen (Lioresal) 10 mg TID PO Last administered on 07/10/18 09:25; Admin Dose 10 MG; Start 07/05/18 at 09:00 Diazepam (Valium) 5 mg TID PRN PO ANXIETY Last administered on 07/08/18 23:49; Admin Dose 5 MG; Start 07/04/18 at 23:00 Gabapentin (Neurontin) 300 mg TID PO Last administered on 07/10/18 09:25; Admin Dose 300 MG; Start 07/05/18 at 09:00 Methadone HCl (Methadone) 10 mg Q12 PO Last administered on 07/10/18 09:26; Admin Dose 10 MG; Start 07/05/18 at 09:00 Risperidone (Risperdal) 4 mg QHS PO Last administered on 07/09/18 20:47; Admin Dose 4 MG; Start 07/04/18 at 23:00 Tizanidine HCl (Zanaflex) 6 mg Q8H PRN PO SPASTICITY Last administered on 07/06/18 09:02; Admin Dose 6 MG; Start 07/04/18 at 23:00 Acetaminophen/ Hydrocodone Bitart ([place] (5/325)) 1 tab Q4H PRN PO SEVERE PAIN LEVEL 7-10 Last administered on 07/10/18 11:44; Admin Dose 1 TAB; Start 07/05/18 at 15:30 Senna (Senokot) 2 tab BID PO Last administered on 07/09/18 20:46; Admin Dose 2 TAB; Start 07/05/18 at 21:00 Polyethylene Glycol (Miralax) 17 gm DAILY PO Last administered on 07/06/18 09:01; Admin Dose 17 GM; Start 07/06/18 at 09:00 Diclofenac Sodium (Voltaren 1% Gel) 2 gm QID TP Last administered on 07/10/18 09:27; Admin Dose 2 GM; Start 07/06/18 at 17:00 Sodium Chloride 1,000 ml @ 75 mls/hr [id number] IV Last administered on 07/08/18 00:16; Admin Dose 75 MLS/HR; Start 07/07/18 at 09:30 Trazodone HCl (Desyrel) 50 mg HS PO Last administered on 07/09/18 20:46; Admin Dose 50 MG; Start 07/07/18 at 21:00 Venlafaxine HCl (Effexor Xr) 300 mg QHS PO Last administered on 07/09/18 20:47; Admin Dose 300 MG; Start 07/07/18 at 21:00 Bisacodyl (Dulcolax Supp) 10 mg DAILY PRN OR CONSTIPATION Last administered on 07/07/18 16:43; Admin Dose 10 MG; Start 07/07/18 at 16:30 Sodium Biphosphate/ Sodium Phosphate (Fleet Enema) 133 ml DAILY PRN OR CONSTIPATION Last administered on 07/08/18 20:42; Admin Dose 133 ML; Start 07/07/18 at 16:30 Lorazepam (Ativan) 1 mg Q1H PRN IV seizures; Start 07/09/18 at 10:30 Levetiracetam (Keppra) 500 mg BID PO Last administered on 07/10/18 09:26; Admin Dose 500 MG; Start 07/09/18 at 21:00 Past Medical History Home Meds Reported Medications Calcium Phosphate Trib/Vit D3 (Calcium + Vitamin D3 Gummies) 1 Each Tab.chew, 2 EACH PO DAILY, TAB.CHEW 07/03/18 [Marijuana Cook] No Conflict Check, 2 PO QHS GIVE 2 COOKIES QHS AND PRN FOR PAIN MANAGEMENT. DO NOT COMBINE WITH OTHER MARIJUANA PRODUCTS. 07/03/18 Methadone Hcl* (Methadone*) 10 Mg Tab, 10 MG PO Q12, TAB 07/03/18 Magnesium Hydroxide* (Milk Of Magnesia*) 400 Mg/5 Ml Oral.susp, 30 ML PO Q24H PRN for NEEDED, ML 07/03/18 Midodrine* (Midodrine*) 10 Mg Tablet, 10 MG PO TID, TAB 07/03/18 Ipratropium-Albuterol (Ipratropium-Albuterol) 0.5-3 Mg/3 Ml Ampul.neb, 3 ML INHALATION Q4 PRN for prn, #30 VIAL 07/03/18 Magaldrate/Simethicone* (Mag-Al Plus Suspension*) 30 Ml Oral.susp, 30 ML PO BID PRN for GASTROINTESTINAL UPSET, ML 07/03/18 Phenyleph/Mineral Oil/Petrolat (Major-Prep Hemorrhoidal Oint) Unknown Strength Oint.appl, 0.25 RC DAILY Apply to ANAL area one time a day as needed for hemorrhoids 07/03/18 Diazepam* (Diazepam*) 5 Mg Tablet, 5 MG PO TID PRN for PRN, TAB 07/03/18 Hydrocodone/Acetaminophen ([place] 10-325 Tablet) 1 Each Tablet, 1 EACH PO Q3H PRN for PAIN 7-02/07, TAB 07/03/18 Polyethylene Glycol* (Miralax*) 17 Gm Powd.pack, 17 GM PO BID, #60 PACKET 07/03/18 Zolpidem Tartrate* (Zolpidem Tartrate*) 10 Mg Tablet, 10 MG PO QHS PRN for INSOMNIA, #30 TAB 07/03/18 Tizanidine Hcl* (Zanaflex*) 4 Mg Capsule, 6 MG PO Q8H PRN for SPASTICITY, CAP 07/03/18 Linaclotide (LINZESS) 290 Mcg Capsule, 290 MCG PO DAILY, #30 CAP 07/03/18 Risperidone* (Risperidone*) 2 Mg Tablet, 4 MG PO QHS, TAB 07/03/18 Atorvastatin Calcium (Atorvastatin Calcium) 10 Mg Tablet, 10 MG PO QHS, #30 TAB 07/03/18 Tetracycline Hcl* (Tetracycline Hcl*) 500 Mg Cap, 500 MG PO BID, CAP 07/03/18 Fenofibric Acid (Choline) (Fenofibric Acid) 135 Mg Capsule.dr, 270 MG PO QHS, TAB 07/03/18 Tamsulosin Hcl* (Tamsulosin Hcl*) 0.4 Mg Cap.er.24h, 0.4 MG PO HS, CAP 07/03/18 Fluoxetine Hcl* (Fluoxetine Hcl*) 10 Mg Capsule, 10 MG PO DAILY, CAP 07/03/18 Clindamycin* Topical (Clindamycin* Topical) 1 %-60 Ml Solution, 1 APPLIC TOP BID, EA 07/03/18 Gabapentin* (Gabapentin*) 300 Mg Capsule, 300 MG PO TID, #90 CAP 07/03/18 Ranitidine Hcl* (Ranitidine Hcl*) 300 Mg Tablet, 300 MG PO QHS, #30 TAB 07/03/18 Bisacodyl* (Bisacodyl*) 10 Mg Supp, 10 MG OR DAILY, SUPP 07/03/18 Ascorbic Acid (Vitamin C) 500 Mg Tab, 500 MG PO BID, TAB 07/03/18 Phenylephrine HCl/[place] Butter* (Preparation H* Suppository) 1 Each Supp.rect, 1 EACH OR QHS, SUPP.RECT 07/03/18 Baclofen* (Baclofen*) 10 Mg Tablet, 10 MG PO TID, TAB 07/03/18 Discontinued Reported Medications Zolpidem Tartrate* (Zolpidem Tartrate*) 10 Mg Tablet, 10 MG PO QHS PRN for INSOMNIA, #30 TAB 04/14/18 Ibuprofen* (Advil*) 200 Mg Capsule, 200 MG PO Q6H PRN for PAIN, CAP 04/14/18 Diclofenac Sodium* (Voltaren* Gel) 1% -100 Gm Gel, 2 GM TOP QID, #1 TUB 04/14/18 Loperamide Hcl* (Imodium*) 2 Mg Capsule, 2 MG PO Q6H PRN for DIARRHEA, CAP MAX 16 mg/day 04/14/18 Acetaminophen* (Acetaminophen*) 325 Mg Tablet, 325 MG PO Q4H PRN for PAIN AND OR ELEVATED TEMP, #30 TAB 04/14/18 Diphenhydramine Hcl* (Benadryl*) 50 Mg Cap, 50 MG PO Q6 PRN for ITCHING, CAP 04/14/18 Magaldrate/Simethicone* (Mag-Al Plus Suspension*) 30 Ml Oral.susp, 30 ML PO BID PRN for GASTROINTESTINAL UPSET, ML 04/14/18 Hydrocodone/Acetaminophen ([place] 10-325 Tablet) 1 Each Tablet, 1 EACH PO, TAB 04/14/18 Polyethylene Glycol* (Miralax*) 17 Gm Powd.pack, 17 GM PO BID, #60 PACKET 04/14/18 Linaclotide (LINZESS) 290 Mcg Capsule, 290 MCG PO DAILY, #30 CAP 04/14/18 Diazepam* (Diazepam*) 5 Mg Tablet, 5 MG PO TID, TAB 04/14/18 Morphine Sulfate* (Ms Contin*) 15 Mg Tablet.sa, 15 MG PO Q12, TAB 04/14/18 Magnesium Hydroxide* (Milk Of Magnesia*) 400 Mg/5 Ml Oral.susp, 30 ML PO BID, ML 04/14/18 Insulin Lispro (Humalog) 100 Unit/1 Ml Cartridge, 100 UNIT SQ SS, EA 04/14/18 Metformin* (Glucophage*) 500 Mg Tab, 500 MG PO TID, #60 TAB 04/14/18 Diazepam* (Diazepam*) 5 Mg Tablet, 5 MG PO BID, TAB 04/14/18 Docusate Sodium* (Docusate Sodium*) 100 Mg Capsule, 100 MG PO BID, #60 CAP 04/14/18 Tizanidine Hcl* (Tizanidine Hcl*) 4 Mg Capsule, 5.5 MG PO Q6H PRN for SPASTICITY, CAP 04/14/18 Guaifenesin/P-Ephed Hcl (Respaire-30 Capsule) 1 Each Capsule, 2 EACH PO, CAP 04/14/18 Atorvastatin Calcium* (Atorvastatin Calcium*) 20 Mg Tablet, 20 MG PO QHS, #30 TAB 04/14/18 Bisacodyl (FAST RELIEF LAXATIVE) 10 Mg Supp.rect, 10 MG RC QPM, SUPP.RECT 04/14/18 Phenylephrine HCl/[place] Butter* (Preparation H* Suppository) 1 Each Supp.rect, 1 EACH OR QHS, SUPP.RECT 04/14/18 Sitagliptin* (Januvia*) 100 Mg Tablet, 100 MG PO DAILY, #30 TAB 04/14/18 Fenofibric Acid (Choline) (Fenofibric Acid) 135 Mg Capsule.dr, 170 MG PO QHS, TAB 04/14/18 Glucosam/Msm/Chond/Hyaluron Ac (SV GLUCOSAMINE-CHONDROITIN TAB) 1 Each Tablet, 1 EACH PO QHS, TAB 04/14/18 Tamsulosin Hcl* (Tamsulosin Hcl*) 0.4 Mg Cap.er.24h, 0.4 MG PO HS, CAP 04/14/18 Fluoxetine Hcl* (Fluoxetine Hcl*) 10 Mg Capsule, 10 MG PO DAILY, CAP 04/14/18 Gabapentin* (Gabapentin*) 300 Mg Capsule, 300 MG PO TID, #90 CAP 04/14/18 Ranitidine Hcl* (Ranitidine Hcl*) 300 Mg Tablet, 300 MG PO HS, #30 TAB 04/14/18 Ascorbic Acid* (Vitamin C*) 500 Mg Capsule.sa, 500 MG PO BID, CAP 04/14/18 Baclofen* (Lioresal*) 10 Mg Tab, 30 MG PO Q8H PRN for MUSCLE SPASMS, TAB 04/14/18 Discontinued Scripts Doxycycline Hyclate* (Doxycycline Hyclate*) 100 Mg Tablet.dr, 100 MG PO BID for 5 Days, #5 TAB Prov:BENITO MCDONOUGH S. 04/19/18 Levofloxacin* (Levaquin*) 750 Mg Tablet, 750 MG PO DAILY for 5 Days, #5 TAB Prov:BENITO MCDONOUGH S. 04/19/18 Medications Current Medications IV Flush (NS 3 ml) 3 ml PER PROTOCOL IV ; Start 07/03/18 at 20:00 Ondansetron HCl (Zofran Inj) 4 mg Q6H PRN IV NAUSEA/VOMITING; Start 07/03/18 at 20:00 Metoclopramide HCl (Reglan) 10 mg Q6H PRN IV NAUSEA/VOMITING; Start 07/03/18 at 20:00 Acetaminophen (Tylenol Tab) 650 mg Q6H PRN PO .PAIN 1-3 OR TEMP Last administered on 07/08/18at 06:51; Admin Dose 650 MG; Start 07/03/18 at 20:00 Docusate Sodium (Colace) 100 mg Q12H PRN PO .CONSTIPATION; Start 07/03/18 at 20:00 Enoxaparin Sodium (Lovenox) 40 mg DAILY SC Last administered on 07/10/18 09:48; Admin Dose 40 MG; Start 07/04/18 at 09:00 Diagnostic Test (Pha) (Accu-Chek) 1 ea 02 XX ; Start 07/05/18 at 02:00 Insulin Aspart (Novolog Insulin Pen) NOVOLOG *MILD* ALGORI... Q6 SC Last administered on 07/06/18at 17:44; Admin Dose 1 UNIT; Start 07/04/18 at 12:00 Miscellaneous Information 1 ea NOTE XX ; Start 07/04/18 at 11:30 Glucose (Glutose) 15 gm Q15M PRN PO DECREASED GLUCOSE; Start 07/04/18 at 11:30 Glucose (Glutose) 22.5 gm Q15M PRN PO DECREASED GLUCOSE; Start 07/04/18 at 11:30 Dextrose (D50w Syringe) 25 ml Q15M PRN IV DECREASED GLUCOSE Last administered on 07/08/18at 12:06; Admin Dose 25 ML; Start 07/04/18 at 11:30 Dextrose (D50w Syringe) 50 ml Q15M PRN IV DECREASED GLUCOSE; Start 07/04/18 at 11:30 Glucagon (Glucagen) 1 mg Q15M PRN IM DECREASED GLUCOSE; Start 07/04/18 at 11:30 Glucose (Glutose) 15 gm Q15M PRN BUCCAL DECREASED GLUCOSE; Start 07/04/18 at 11:30 Baclofen (Lioresal) 10 mg TID PO Last administered on 07/10/18 09:25; Admin Dose 10 MG; Start 07/05/18 at 09:00 Diazepam (Valium) 5 mg TID PRN PO ANXIETY Last administered on 07/08/18 23:49; Admin Dose 5 MG; Start 07/04/18 at 23:00 Gabapentin (Neurontin) 300 mg TID PO Last administered on 07/10/18 09:25; Admin Dose 300 MG; Start 07/05/18 at 09:00 Methadone HCl (Methadone) 10 mg Q12 PO Last administered on 07/10/18 09:26; Admin Dose 10 MG; Start 07/05/18 at 09:00 Risperidone (Risperdal) 4 mg QHS PO Last administered on 07/09/18 20:47; Admin Dose 4 MG; Start 07/04/18 at 23:00 Tizanidine HCl (Zanaflex) 6 mg Q8H PRN PO SPASTICITY Last administered on 07/06/18 09:02; Admin Dose 6 MG; Start 07/04/18 at 23:00 Acetaminophen/ Hydrocodone Bitart ([place] (5/325)) 1 tab Q4H PRN PO SEVERE PAIN LEVEL 7-10 Last administered on 07/10/18 11:44; Admin Dose 1 TAB; Start 07/05/18 at 15:30 Senna (Senokot) 2 tab BID PO Last administered on 07/09/18 20:46; Admin Dose 2 TAB; Start 07/05/18 at 21:00 Polyethylene Glycol (Miralax) 17 gm DAILY PO Last administered on 07/06/18 09:01; Admin Dose 17 GM; Start 07/06/18 at 09:00 Diclofenac Sodium (Voltaren 1% Gel) 2 gm QID TP Last administered on 07/10/18 09:27; Admin Dose 2 GM; Start 07/06/18 at 17:00 Sodium Chloride 1,000 ml @ 75 mls/hr [id number] IV Last administered on 07/08/18 00:16; Admin Dose 75 MLS/HR; Start 07/07/18 at 09:30 Trazodone HCl (Desyrel) 50 mg HS PO Last administered on 07/09/18 20:46; Admin Dose 50 MG; Start 07/07/18 at 21:00 Venlafaxine HCl (Effexor Xr) 300 mg QHS PO Last administered on 07/09/18 20:47; Admin Dose 300 MG; Start 07/07/18 at 21:00 Bisacodyl (Dulcolax Supp) 10 mg DAILY PRN OR CONSTIPATION Last administered on 07/07/18 16:43; Admin Dose 10 MG; Start 07/07/18 at 16:30 Sodium Biphosphate/ Sodium Phosphate (Fleet Enema) 133 ml DAILY PRN OR CONSTIPATION Last administered on 07/08/18 20:42; Admin Dose 133 ML; Start 07/07/18 at 16:30 Lorazepam (Ativan) 1 mg Q1H PRN IV seizures; Start 07/09/18 at 10:30 Levetiracetam (Keppra) 500 mg BID PO Last administered on 3/12/19at 09:26; Admin Dose 500 MG; Start 07/09/18 at 21:00 Allergies: Coded Allergies: No Known Allergy (Unverified , 07/03/18) Social History Alcohol Use: none Smoking Status: Never smoker Drug Use: none NILAM HAWKINS NP Jul 10, 2018 13:07
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
--- NOTE | 2018-07-10 18:48 | EEG ---
EEG NOTE Report Details DATE OF TEST: 07/09/18 HISTORY: The patient is a 28-year-old M who presents with seizure. This EEG is requested to evaluate for an epileptic disorder. SEDATION: None. CONDITIONS OF RECORDING: This EEG was recorded digitally on the [employer] machine, using the International 10-20 System of electrodes plus anterior temporals and [place]. STATES SAMPLED: Lethargic. FINDINGS: The background is continuos and grossly symmetric...with a preponderance of po lymorphic theta and delta activity.. The normal [id number] frequency-amplitude gradient was absent. Photic stimulation does not elicit any definite driving responses or epileptiform discharges. Hyperventilation was not performed. No asymmetries, focal abnormalities or epileptiform discharges were seen. IMPRESSION: Abnormal electroencephalogram due to: diffuse slowing. COMMENT: The slowing of the background indicates diffuse cortical dysfunction of nonspecific etiology. JAYDEN LEAVITT Jul 10, 2018 18:48
[2018-07-10] MEDS: QUETIAPINE 25 MG TAB PO SCH (21:19)
[2018-07-10] MEDS: traZODone 50 MG TAB PO SCH (21:19)
[2018-07-10] MEDS: RISPERIDONE 2 MG TAB PO SCH (21:19)
[2018-07-10] MEDS: VENLAFAXINE (XR) 75 MG CAP PO SCH (21:20)
[2018-07-11] VITALS (22 sets, daily range): BP systolic 109–145; BP diastolic 71–97; PULSE 87–145; RESP 20–23
[2018-07-11] MEDS: ACCU-CHEK XX SCH (00:24)
[2018-07-11] MEDS: INSULIN ASPART [NOVOLOG] 3 ML PEN SC SCH ×5 (05:22→23:45)
[2018-07-11] MEDS: SOD CHLORIDE 0.9% 1,000 ML IV SCH (05:22)
[2018-07-11] MEDS: POLYETHYLENE GLYCOL 17 GM PACKET PO SCH (09:00)
[2018-07-11] MEDS: SENNA TAB PO SCH ×2 (09:00→21:17)
[2018-07-11] MEDS: DICLOFENAC SODIUM 1% GEL 100 GM TUBE TP SCH ×4 (09:23→21:17)
[2018-07-11] MEDS: METHADONE 10 MG TAB PO SCH ×2 (09:23→21:20)
[2018-07-11] MEDS: LEVETIRACETAM 500 MG TAB PO SCH ×2 (09:23→21:18)
[2018-07-11] MEDS: BACLOFEN 10 MG TAB PO SCH ×3 (09:23→21:17)
[2018-07-11] MEDS: GABAPENTIN 300 MG CAP PO SCH ×3 (09:23→21:17)
[2018-07-11] MEDS: ENOXAPARIN 40 MG/0.4 ML SYG SC SCH (10:21)
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
[2018-07-11] MEDS ORDERED: METOPROLOL 25 MG TAB GTB ONE (11:30)
[2018-07-11] MEDS ORDERED: METOPROLOL 25 MG TAB GTB SCH (11:30)
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
[2018-07-11] MEDS: HYDROCODONE/APAP (5/325) TAB PO PRN ×2 (16:36→21:17)
[2018-07-11] MEDS: RISPERIDONE 2 MG TAB PO SCH (21:16)
[2018-07-11] MEDS: VENLAFAXINE (XR) 75 MG CAP PO SCH (21:16)
[2018-07-11] MEDS: QUETIAPINE 25 MG TAB PO SCH (21:17)
[2018-07-11] MEDS: traZODone 50 MG TAB PO SCH (21:17)
[2018-07-11] MEDS: ATORVASTATIN 10 MG TAB PO SCH (21:17)
[2018-07-12] VITALS (22 sets, daily range): BP systolic 122–157; BP diastolic 85–99; PULSE 92–129; RESP 18–22
[2018-07-12] MEDS: ACCU-CHEK XX SCH (01:33)
[2018-07-12] MEDS: INSULIN ASPART [NOVOLOG] 3 ML PEN SC SCH ×3 (05:54→17:53)
[2018-07-12] MEDS: BACLOFEN 10 MG TAB PO SCH ×3 (08:43→20:32)
[2018-07-12] MEDS: GABAPENTIN 300 MG CAP PO SCH ×3 (08:43→20:33)
[2018-07-12] MEDS: LEVETIRACETAM 500 MG TAB PO SCH ×2 (08:43→20:33)
[2018-07-12] MEDS: FLUOXETINE 10 MG CAP PO SCH (08:43)
[2018-07-12] MEDS: SENNA TAB PO SCH ×2 (08:44→21:05)
[2018-07-12] MEDS: POLYETHYLENE GLYCOL 17 GM PACKET PO SCH (08:44)
[2018-07-12] MEDS: DICLOFENAC SODIUM 1% GEL 100 GM TUBE TP SCH ×4 (08:44→21:08)
[2018-07-12] MEDS: ENOXAPARIN 40 MG/0.4 ML SYG SC SCH (08:48)
[2018-07-12] MEDS: METHADONE 10 MG TAB PO SCH ×2 (08:55→20:32)
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
[2018-07-12] MEDS ORDERED: SOD CHLORIDE 0.9% 500 ML IV ONE (15:00)
[2018-07-12] MEDS: METOPROLOL 25 MG TAB NGT SCH ×2 (16:25→20:35)
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
[2018-07-12] MEDS: RISPERIDONE 2 MG TAB PO SCH (20:26)
[2018-07-12] MEDS: VENLAFAXINE (XR) 75 MG CAP PO SCH (20:26)
[2018-07-12] MEDS: QUETIAPINE 25 MG TAB PO SCH (20:32)
[2018-07-12] MEDS: ATORVASTATIN 10 MG TAB PO SCH (20:33)
[2018-07-12] MEDS: traZODone 50 MG TAB PO SCH (20:34)
[2018-07-12] MEDS: BISACODYL 10 MG SUPP PR PRN (20:35)
[2018-07-12] MEDS: TIZANIDINE 2 MG TAB PO PRN (21:08)
[2018-07-12] MEDS ORDERED: ZOLPIDEM 5 MG TAB PO PRN (23:30)
[2018-07-13] VITALS (23 sets, daily range): BP systolic 108–119; BP diastolic 78–89; PULSE 80–126; RESP 18–20
[2018-07-13] MEDS: ACCU-CHEK XX SCH (02:00)
[2018-07-13] MEDS: INSULIN ASPART [NOVOLOG] 3 ML PEN SC SCH ×4 (06:00→17:37)
[2018-07-13] MEDS: METOPROLOL 25 MG TAB NGT SCH (08:40)
[2018-07-13] MEDS: GABAPENTIN 300 MG CAP PO SCH ×3 (08:40→20:56)
[2018-07-13] MEDS: DICLOFENAC SODIUM 1% GEL 100 GM TUBE TP SCH ×4 (08:40→20:54)
[2018-07-13] MEDS: LEVETIRACETAM 500 MG TAB PO SCH ×2 (08:40→20:55)
[2018-07-13] MEDS: FLUOXETINE 10 MG CAP PO SCH (08:40)
[2018-07-13] MEDS: POLYETHYLENE GLYCOL 17 GM PACKET PO SCH (08:41)
[2018-07-13] MEDS: SENNA TAB PO SCH ×2 (08:41→20:55)
[2018-07-13] MEDS: BACLOFEN 10 MG TAB PO SCH ×3 (08:41→20:55)
[2018-07-13] MEDS: METHADONE 10 MG TAB PO SCH ×2 (08:43→20:56)
[2018-07-13] MEDS: ENOXAPARIN 40 MG/0.4 ML SYG SC SCH (08:54)
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
[2018-07-13] MEDS: FLUCONAZOLE 100 MG/50 ML (PMX) 50 ML IVPB SCH (13:53)
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
[2018-07-13] MEDS: VENLAFAXINE (XR) 75 MG CAP PO SCH (20:54)
[2018-07-13] MEDS: ACETAMINOPHEN 325 MG TAB PO PRN (20:54)
[2018-07-13] MEDS: TIZANIDINE 2 MG TAB PO PRN (20:55)
[2018-07-13] MEDS: RISPERIDONE 2 MG TAB PO SCH (20:55)
[2018-07-13] MEDS: ATORVASTATIN 10 MG TAB PO SCH (20:55)
[2018-07-13] MEDS: QUETIAPINE 25 MG TAB PO SCH (20:55)
[2018-07-13] MEDS: traZODone 50 MG TAB PO SCH (20:56)
[2018-07-14] VITALS (23 sets, daily range): BP systolic 89–155; BP diastolic 61–97; PULSE 92–129; RESP 16–20
[2018-07-14] MEDS: ACCU-CHEK XX SCH (02:00)
[2018-07-14] MEDS: HYDROCODONE/APAP (5/325) TAB PO PRN ×2 (04:46→17:16)
[2018-07-14] MEDS: INSULIN ASPART [NOVOLOG] 3 ML PEN SC SCH ×5 (06:00→23:30)
[2018-07-14] MEDS: POLYETHYLENE GLYCOL 17 GM PACKET PO SCH (08:26)
[2018-07-14] MEDS: LEVETIRACETAM 500 MG TAB PO SCH ×2 (08:26→20:50)
[2018-07-14] MEDS: FLUOXETINE 10 MG CAP PO SCH (08:26)
[2018-07-14] MEDS: GABAPENTIN 300 MG CAP PO SCH ×3 (08:26→20:50)
[2018-07-14] MEDS: SENNA TAB PO SCH ×2 (08:26→20:49)
[2018-07-14] MEDS: TIZANIDINE 2 MG TAB PO PRN ×2 (08:26→23:13)
[2018-07-14] MEDS: BACLOFEN 10 MG TAB PO SCH ×3 (08:26→20:50)
[2018-07-14] MEDS: ENOXAPARIN 40 MG/0.4 ML SYG SC SCH (08:28)
[2018-07-14] MEDS: METHADONE 10 MG TAB PO SCH ×2 (08:32→23:13)
[2018-07-14] MEDS: DICLOFENAC SODIUM 1% GEL 100 GM TUBE TP SCH ×4 (08:37→20:52)
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
[2018-07-14] MEDS: FLUCONAZOLE 100 MG/50 ML (PMX) 50 ML IVPB SCH (13:19)
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
[2018-07-14] MEDS ORDERED: VANCOMYCIN IV PER PHARMACY XX SCH (20:30)
[2018-07-14] MEDS: ATORVASTATIN 10 MG TAB PO SCH (20:49)
[2018-07-14] MEDS: QUETIAPINE 25 MG TAB PO SCH (20:49)
[2018-07-14] MEDS: RISPERIDONE 2 MG TAB PO SCH (20:50)
[2018-07-14] MEDS: VENLAFAXINE (XR) 75 MG CAP PO SCH (20:50)
[2018-07-14] MEDS: traZODone 50 MG TAB PO SCH (20:50)
[2018-07-14] MEDS: ACETAMINOPHEN 325 MG TAB PO PRN (20:51)
[2018-07-14] MEDS ORDERED: VANCOMYCIN HCL 1.5 GM in SOD CHLORIDE 0.9% 250 ML IVPB ONE (23:00)
[2018-07-14] MEDS: PIPER-TAZO 3.375 GM IV (PMX) 100 ML IVPB SCH (23:12)
[2018-07-14] MEDS: NA PHOSPHATE/BIPHOS 133 ML ENEMA PR PRN (23:30)
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
[2018-07-15] VITALS (24 sets, daily range): BP systolic 80–119; BP diastolic 48–71; PULSE 83–118; RESP 17–23
[2018-07-15] MEDS: NA PHOSPHATE/BIPHOS 133 ML ENEMA PR PRN (00:18)
[2018-07-15] MEDS: ACCU-CHEK XX SCH (02:00)
[2018-07-15] MEDS: PIPER-TAZO 3.375 GM IV (PMX) 100 ML IVPB SCH ×3 (06:04→21:29)
[2018-07-15] MEDS ORDERED: VANCOMYCIN HCL 1.25 GM in SOD CHLORIDE 0.9% 250 ML IVPB SCH (07:00)
[2018-07-15] MEDS: INSULIN ASPART [NOVOLOG] 3 ML PEN SC SCH ×4 (07:55→21:00)
[2018-07-15] MEDS: VANCOMYCIN 1 GM 250 ML IVPB SCH ×2 (08:07→17:11)
[2018-07-15] MEDS: POLYETHYLENE GLYCOL 17 GM PACKET PO SCH (08:07)
[2018-07-15] MEDS: BALSAM PERU/CASTOR OIL 60 GM TUBE TOP SCH ×2 (08:08→21:02)
[2018-07-15] MEDS: METHADONE 10 MG TAB PO SCH ×2 (08:09→21:01)
[2018-07-15] MEDS: GABAPENTIN 300 MG CAP PO SCH ×3 (08:09→21:02)
[2018-07-15] MEDS: BACLOFEN 10 MG TAB PO SCH ×3 (08:09→21:01)
[2018-07-15] MEDS: LEVETIRACETAM 500 MG TAB PO SCH ×2 (08:09→21:01)
[2018-07-15] MEDS: FLUOXETINE 10 MG CAP PO SCH (08:09)
[2018-07-15] MEDS: SENNA TAB PO SCH ×2 (08:09→21:01)
[2018-07-15] MEDS: DICLOFENAC SODIUM 1% GEL 100 GM TUBE TP SCH ×4 (08:24→21:02)
[2018-07-15] MEDS: ENOXAPARIN 40 MG/0.4 ML SYG SC SCH (08:24)
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
[2018-07-15] MEDS: FLUCONAZOLE 100 MG/50 ML (PMX) 50 ML IVPB SCH (12:47)
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
[2018-07-15] MEDS: ATORVASTATIN 10 MG TAB PO SCH (21:00)
[2018-07-15] MEDS: traZODone 50 MG TAB PO SCH (21:01)
[2018-07-15] MEDS: RISPERIDONE 2 MG TAB PO SCH (21:01)
[2018-07-15] MEDS: QUETIAPINE 25 MG TAB PO SCH (21:01)
[2018-07-15] MEDS: VENLAFAXINE (XR) 75 MG CAP PO SCH (21:02)
[2018-07-16] VITALS (23 sets, daily range): BP systolic 75–131; BP diastolic 45–78; PULSE 72–110; RESP 17–25
[2018-07-16] MEDS: ACCU-CHEK XX SCH (02:00)
[2018-07-16] MEDS: PIPER-TAZO 3.375 GM IV (PMX) 100 ML IVPB SCH ×2 (05:11→13:26)
[2018-07-16] MEDS: ACETAMINOPHEN 325 MG TAB PO PRN (05:11)
[2018-07-16] MEDS: INSULIN ASPART [NOVOLOG] 3 ML PEN SC SCH ×4 (07:55→21:00)
[2018-07-16] MEDS: POLYETHYLENE GLYCOL 17 GM PACKET PO SCH (08:54)
[2018-07-16] MEDS: SENNA TAB PO SCH ×2 (08:55→21:11)
[2018-07-16] MEDS: BACLOFEN 10 MG TAB PO SCH ×3 (08:55→21:12)
[2018-07-16] MEDS: LEVETIRACETAM 500 MG TAB PO SCH ×2 (08:55→21:12)
[2018-07-16] MEDS: GABAPENTIN 300 MG CAP PO SCH ×3 (08:56→21:12)
[2018-07-16] MEDS: METHADONE 10 MG TAB PO SCH ×2 (08:56→21:12)
[2018-07-16] MEDS: DICLOFENAC SODIUM 1% GEL 100 GM TUBE TP SCH ×4 (08:56→21:00)
[2018-07-16] MEDS: FLUOXETINE 10 MG CAP PO SCH (08:56)
[2018-07-16] MEDS: BALSAM PERU/CASTOR OIL 60 GM TUBE TOP SCH ×2 (08:56→21:23)
[2018-07-16] MEDS: ENOXAPARIN 40 MG/0.4 ML SYG SC SCH (09:14)
[2018-07-16] MEDS: TIZANIDINE 2 MG TAB PO PRN (11:53)
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
[2018-07-16] MEDS: FLUCONAZOLE 100 MG/50 ML (PMX) 50 ML IVPB SCH (14:36)
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
[2018-07-16] MEDS: NA PHOSPHATE/BIPHOS 133 ML ENEMA PR PRN (20:39)
[2018-07-16] MEDS ORDERED: VANCOMYCIN 1 GM 250 ML IVPB SCH (21:00)
[2018-07-16] MEDS: VENLAFAXINE (XR) 75 MG CAP PO SCH (21:11)
[2018-07-16] MEDS: ATORVASTATIN 10 MG TAB PO SCH (21:11)
[2018-07-16] MEDS: RISPERIDONE 2 MG TAB PO SCH (21:11)
[2018-07-16] MEDS: QUETIAPINE 25 MG TAB PO SCH (21:11)
[2018-07-16] MEDS: traZODone 50 MG TAB PO SCH (21:12)
[2018-07-17] VITALS (25 sets, daily range): BP systolic 90–118; BP diastolic 54–83; PULSE 67–94; RESP 19–21
[2018-07-17] MEDS: ACCU-CHEK XX SCH (01:51)
[2018-07-17] MEDS: HYDROCODONE/APAP (5/325) TAB PO PRN (03:29)
[2018-07-17] MEDS: INSULIN ASPART [NOVOLOG] 3 ML PEN SC SCH ×4 (07:55→21:55)
[2018-07-17] MEDS: LEVETIRACETAM 500 MG TAB PO SCH ×2 (08:47→21:32)
[2018-07-17] MEDS: SENNA TAB PO SCH ×2 (08:47→21:28)
[2018-07-17] MEDS: TIZANIDINE 2 MG TAB PO PRN (08:47)
[2018-07-17] MEDS: BACLOFEN 10 MG TAB PO SCH ×3 (08:47→21:28)
[2018-07-17] MEDS: POLYETHYLENE GLYCOL 17 GM PACKET PO SCH (08:47)
[2018-07-17] MEDS: GABAPENTIN 300 MG CAP PO SCH ×3 (08:48→21:27)
[2018-07-17] MEDS: FLUOXETINE 10 MG CAP PO SCH (08:48)
[2018-07-17] MEDS: METHADONE 10 MG TAB PO SCH ×2 (08:48→21:33)
[2018-07-17] MEDS: DICLOFENAC SODIUM 1% GEL 100 GM TUBE TP SCH ×4 (08:48→21:26)
[2018-07-17] MEDS: BALSAM PERU/CASTOR OIL 60 GM TUBE TOP SCH ×2 (08:49→21:26)
[2018-07-17] MEDS: ENOXAPARIN 40 MG/0.4 ML SYG SC SCH (09:47)
--- NOTE | 2018-07-17 11:19 | CONS ---
Assessment/Plan Assessment/Plan Assessment/Plan (Daily) Ventilator setting; AC of 20, tidal volume 550, PEEP of 5, 30% FiO2. Assessment recommendations; 1. Patient with history of chronic encephalopathy and VDR F admitted for UTI and sepsis, status post treatment. 2. Stable seizure disorder. 3. History of muscle spasms 4. Peripheral neuropathy. Continue current supportive care. Consider discharge. Prognosis is poor. Consultation Date/Type/Reason Admit Date/Time Jul 03, 2018 at 19:21 Initial Consult Date Type of Consult Pulmonary Patient's condition is stable. Due to chronic encephalopathy, patient remains noncommunicative. General exam; young male, on ventilator via tracheostomy, currently no distress. Reason for Consultation H EENT exam; supple neck, no JVD. No lymphadenopathy. Midline trachea. No thyromegaly. Tracheostomy in place. Insertion site is clean. Chest exam; diminished but clear breath sounds. S1-S2 audible, no murmurs. Regular rhythm. Abdomen exam; soft, G-tube in place. No organomegaly. Bowel sounds audible. Extremity exam; no peripheral edema. EXPORT AGENT exam; patient remains noncommunicative. Requesting Provider: BENITO MCDONOUGH Date/Time of Note DATE: 07/17/18 TIME: 11:17 Exam/Review of Systems Exam Vitals Vital Signs Date Temp Pulse Resp B/P (MAP) Pulse Ox O2 O2 Flow FiO2 Time Delivery Rate 07/17/18 71 20 99 30 11:04 07/17/18 99.5 113/78 07:36 (90) 07/14/18 Mechanical 16:11 Ventilator Intake and Output 07/16/18 07/16/18 07/17/18 1515:00 23:00 07:00 IntakeIntake Total 400 ml 700 ml OutputOutput Total 1900 ml 1800 ml BalanceBalance -1500 ml -1100 ml Results Result Diagram: 07/16/18 0609 07/16/18 0609 Results 24hrs Laboratory Tests Test 07/16/18 11:52 07/16/18 17:22 07/16/18 21:22 07/17/18 08:03 Bedside Glucose 114 179 179 90 Medications Medication Current Medications IV Flush (NS 3 ml) 3 ml PER PROTOCOL IV ; Start 07/03/18 at 20:00 Ondansetron HCl (Zofran Inj) 4 mg Q6H PRN IV NAUSEA/VOMITING; Start 07/03/18 at 20:00 Metoclopramide HCl (Reglan) 10 mg Q6H PRN IV NAUSEA/VOMITING; Start 07/03/18 at 20:00 Acetaminophen (Tylenol Tab) 650 mg Q6H PRN PO .PAIN 1-3 OR TEMP Last administered on 07/16/18at 05:11; Admin Dose 650 MG; Start 07/03/18 at 20:00 Docusate Sodium (Colace) 100 mg Q12H PRN PO .CONSTIPATION; Start 07/03/18 at 20:00 Enoxaparin Sodium (Lovenox) 40 mg DAILY SC Last administered on 07/17/18 09:4 7; Admin Dose 40 MG; Start 07/04/18 at 09:00 Diagnostic Test (Pha) (Accu-Chek) 1 ea 02 XX ; Start 07/05/18 at 02:00 Miscellaneous Information 1 ea NOTE XX ; Start 07/04/18 at 11:30 Glucose (Glutose) 15 gm Q15M PRN PO DECREASED GLUCOSE; Start 07/04/18 at 11:30 Glucose (Glutose) 22.5 gm Q15M PRN PO DECREASED GLUCOSE; Start 07/04/18 at 11:30 Dextrose (D50w Syringe) 25 ml Q15M PRN IV DECREASED GLUCOSE Last administered on 07/08/18at 12:06; Admin Dose 25 ML; Start 07/04/18 at 11:30 Dextrose (D50w Syringe) 50 ml Q15M PRN IV DECREASED GLUCOSE; Start 07/04/18 at 11:30 Glucagon (Glucagen) 1 mg Q15M PRN IM DECREASED GLUCOSE; Start 07/04/18 at 11:30 Glucose (Glutose) 15 gm Q15M PRN BUCCAL DECREASED GLUCOSE; Start 07/04/18 at 11:30 Baclofen (Lioresal) 10 mg TID PO Last administered on 07/17/18at 08:47; Admin Dose 10 MG; Start 07/05/18 at 09:00 Diazepam (Valium) 5 mg TID PRN PO ANXIETY Last administered on 07/08/18at 23:49; Admin Dose 5 MG; Start 07/04/18 at 23:00 Gabapentin (Neurontin) 300 mg TID PO Last administered on 07/17/18at 08:48; Admin Dose 300 MG; Start 07/05/18 at 09:00 Methadone HCl (Methadone) 10 mg Q12 PO Last administered on 07/17/18 08:48; Admin Dose 10 MG; Start 07/05/18 at 09:00 Risperidone (Risperdal) 4 mg QHS PO Last administered on 07/16/18 21:11; Admin Dose 4 MG; Start 07/04/18 at 23:00 Tizanidine HCl (Zanaflex) 6 mg Q8H PRN PO SPASTICITY Last administered on 07/17/18 08:47; Admin Dose 6 MG; Start 07/04/18 at 23:00 Acetaminophen/ Hydrocodone Bitart ([place] (5/325)) 1 tab Q4H PRN PO SEVERE PAIN LEVEL 7-10 Last administered on 07/17/18 03:29; Admin Dose 1 TAB; Start 07/05/18 at 15:30 Senna (Senokot) 2 tab BID PO Last administered on 07/17/18 08:47; Admin Dose 2 TAB; Start 07/05/18 at 21:00 Polyethylene Glycol (Miralax) 17 gm DAILY PO Last administered on 07/17/18 08:47; Admin Dose 17 GM; Start 07/06/18 at 09:00 Diclofenac Sodium (Voltaren 1% Gel) 2 gm QID TP Last administered on 07/17/18 08:48; Admin Dose 2 GM; Start 07/06/18 at 17:00 Trazodone HCl (Desyrel) 50 mg HS PO Last administered on 07/16/18 21:12; Admin Dose 50 MG; Start 07/07/18 at 21:00 Venlafaxine HCl (Effexor Xr) 300 mg QHS PO Last administered on 07/16/18 21:11; Admin Dose 300 MG; Start 07/07/18 at 21:00 Bisacodyl (Dulcolax Supp) 10 mg DAILY PRN [place] CONSTIPATION Last administered on 07/12/18 20:35; Admin Dose 10 MG; Start 07/07/18 at 16:30 Sodium Biphosphate/ Sodium Phosphate (Fleet Enema) 133 ml DAILY PRN [place] CONSTIPATION Last administered on 07/16/18 20:39; Admin Dose 133 ML; Start 07/07/18 at 16:30 Lorazepam (Ativan) 1 mg Q1H PRN IV seizures; Start 07/09/18 at 10:30 Levetiracetam (Keppra) 500 mg BID PO Last administered on 07/17/18 08:47; Admin Dose 500 MG; Start 07/09/18 at 21:00 Quetiapine Fumarate (Seroquel) 50 mg HS PO Last administered on 07/16/18 21:11; Admin Dose 50 MG; Start 07/10/18 at 21:00 Atorvastatin Calcium (Lipitor) 10 mg QHS PO Last administered on 07/16/18 21:11; Admin Dose 10 MG; Start 07/11/18 at 21:00 Fluoxetine HCl (Prozac) 10 mg DAILY PO Last administered on 07/17/18 08:48; Admin Dose 10 MG; Start 07/12/18 at 09:00 Insulin Aspart (Novolog Insulin Pen) NOVOLOG *MILD* ALGORITHM WITH MEALS BEDTIME SC Last administered on 07/16/18 17:36; Admin Dose 2 UNIT; Start 07/15/18 at 07:55 MASTER JHAVERI 19, 2019 11:18
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
[2018-07-17] MEDS: traZODone 50 MG TAB PO SCH (21:27)
[2018-07-17] MEDS: VENLAFAXINE (XR) 75 MG CAP PO SCH (21:27)
[2018-07-17] MEDS: ATORVASTATIN 10 MG TAB PO SCH (21:28)
[2018-07-17] MEDS: RISPERIDONE 2 MG TAB PO SCH (21:28)
[2018-07-17] MEDS: QUETIAPINE 25 MG TAB PO SCH (21:28)
[2018-07-18] VITALS (17 sets, daily range): BP systolic 98–130; BP diastolic 61–87; PULSE 66–108; RESP 18–21
[2018-07-18] MEDS: ACCU-CHEK XX SCH (02:00)
[2018-07-18] MEDS: INSULIN ASPART [NOVOLOG] 3 ML PEN SC SCH ×2 (07:55→11:50)
[2018-07-18] MEDS: FLUOXETINE 10 MG CAP PO SCH (08:08)
[2018-07-18] MEDS: BACLOFEN 10 MG TAB PO SCH ×2 (08:08→12:40)
[2018-07-18] MEDS: SENNA TAB PO SCH (08:08)
[2018-07-18] MEDS: LEVETIRACETAM 500 MG TAB PO SCH (08:08)
[2018-07-18] MEDS: GABAPENTIN 300 MG CAP PO SCH ×2 (08:08→12:40)
[2018-07-18] MEDS: METHADONE 10 MG TAB PO SCH (08:09)
[2018-07-18] MEDS: ENOXAPARIN 40 MG/0.4 ML SYG SC SCH (08:09)
[2018-07-18] MEDS: POLYETHYLENE GLYCOL 17 GM PACKET PO SCH (08:09)
[2018-07-18] MEDS: BALSAM PERU/CASTOR OIL 60 GM TUBE TOP SCH (08:10)
[2018-07-18] MEDS: DICLOFENAC SODIUM 1% GEL 100 GM TUBE TP SCH ×2 (08:10→12:40)
--- NOTE | 2018-07-18 09:48 | CONS ---
Assessment/Plan Assessment/Plan Assessment/Plan (Daily) Ventilator setting; AC of 20, tidal volume 550, PEEP of 5, 30% FiO2. Assessment recommendations; 1. Patient with history of chronic severe encephalopathy and VDR F admitted for sepsis from UTI status post treatment with interval clinical improvement. Off antibiotics now. 2. Stable seizure disorder. 3. History of neuropathy and muscle spasms. Continue current supportive care. Consider discharge. Consultation Date/Type/Reason Admit Date/Time Jul 03, 2018 at 19:21 Initial Consult Date Type of Consult Pulmonary Patient's condition is stable. Due to chronic encephalopathy, patient remains noncommunicative. General exam; young male, on ventilator via tracheostomy, currently no distress. Requesting Provider: BENITO MCDONOUGH Date/Time of Note DATE: 07/18/18 TIME: 09:46 24 HR Interval Summary Free Text/Dictation Patient's condition remains stable. Has remained hemodynamically stable. No overt seizure activity reported. General exam; young male, on ventilator via tracheostomy, unresponsive, currently in no distress. Exam/Review of Systems Exam Vitals Vital Signs Date Temp Pulse Resp B/P (MAP) Pulse Ox O2 O2 Flow FiO2 Time Delivery Rate 07/18/18 105 08:52 07/18/18 99.5 18 126/86 99 Mechanical 07:43 (99) Ventilator 07/18/18 30 05:00 Intake and Output 07/17/18 07/17/18 07/18/18 1515:00 23:00 07:00 IntakeIntake Total 1300 ml 400 ml OutputOutput Total 1500 ml 2300 ml BalanceBalance -200 ml -1900 ml Exam HEENT exam; supple neck, no JVD. No lymphadenopathy. Midline trachea. No thyromegaly. Tracheostomy in place. Insertion site is clean. Patient has fair dentition. Chest exam; diminished but clear breath sounds. S1-S2 audible, no murmurs. Regular rhythm. Abdomen exam; soft, nondistended. No organomegaly. G-tube in place. Bowel sounds audible. Extremity exam; no peripheral edema clubbing. [employer] exam; patient remains unresponsive. Results Result Diagram: 07/16/18 0609 07/16/18 0609 Results 24hrs Laboratory Tests Test 07/17/18 12:09 07/17/18 17:24 07/17/18 21:26 07/18/18 02:02 Bedside Glucose 146 167 219 112 Test 07/18/18 08:07 Bedside Glucose 114 Medications Medication Current Medications IV Flush (NS 3 ml) 3 ml PER PROTOCOL IV ; Start 07/03/18 at 20:00 Ondansetron HCl (Zofran Inj) 4 mg Q6H PRN IV NAUSEA/VOMITING; Start 07/03/18 at 20:00 Metoclopramide HCl (Reglan) 10 mg Q6H PRN IV NAUSEA/VOMITING; Start 07/03/18 at 20:00 Acetaminophen (Tylenol Tab) 650 mg Q6H PRN PO .PAIN 1-3 OR TEMP Last administered on 07/16/18at 05:11; Admin Dose 650 MG; Start 07/03/18 at 20:00 Docusate Sodium (Colace) 100 mg Q12H PRN PO .CONSTIPATION; Start 07/03/18 at 20:00 Enoxaparin Sodium (Lovenox) 40 mg DAILY SC Last administered on 07/18/18at 0 8:09; Admin Dose 40 MG; Start 07/04/18 at 09:00 Diagnostic Test (Pha) (Accu-Chek) 1 ea 02 XX ; Start 07/05/18 at 02:00 Miscellaneous Information 1 ea NOTE XX ; Start 07/04/18 at 11:30 Glucose (Glutose) 15 gm Q15M PRN PO DECREASED GLUCOSE; Start 07/04/18 at 11:30 Glucose (Glutose) 22.5 gm Q15M PRN PO DECREASED GLUCOSE; Start 07/04/18 at 11:30 Dextrose (D50w Syringe) 25 ml Q15M PRN IV DECREASED GLUCOSE Last administered on 07/08/18at 12:06; Admin Dose 25 ML; Start 07/04/18 at 11:30 Dextrose (D50w Syringe) 50 ml Q15M PRN IV DECREASED GLUCOSE; Start 07/04/18 at 11:30 Glucagon (Glucagen) 1 mg Q15M PRN IM DECREASED GLUCOSE; Start 07/04/18 at 11:30 Glucose (Glutose) 15 gm Q15M PRN BUCCAL DECREASED GLUCOSE; Start 07/04/18 at 11:30 Baclofen (Lioresal) 10 mg TID PO Last administered on 07/18/18at 08:08; Admin Dose 10 MG; Start 07/05/18 at 09:00 Diazepam (Valium) 5 mg TID PRN PO ANXIETY Last administered on 07/08/18 23:49; Admin Dose 5 MG; Start 07/04/18 at 23:00 Gabapentin (Neurontin) 300 mg TID PO Last administered on 07/18/18 08:08; Admin Dose 300 MG; Start 07/05/18 at 09:00 Methadone HCl (Methadone) 10 mg Q12 PO Last administered on 07/18/18 08:09; Admin Dose 10 MG; Start 07/05/18 at 09:00 Risperidone (Risperdal) 4 mg QHS PO Last administered on 07/17/18 21:28; Admin Dose 4 MG; Start 07/04/18 at 23:00 Tizanidine HCl (Zanaflex) 6 mg Q8H PRN PO SPASTICITY Last administered on 07/17/18 08:47; Admin Dose 6 MG; Start 07/04/18 at 23:00 Acetaminophen/ Hydrocodone Bitart ([place] (5/325)) 1 tab Q4H PRN PO SEVERE PAIN LEVEL 7-10 Last administered on 07/17/18 03:29; Admin Dose 1 TAB; Start 07/05/18 at 15:30 Senna (Senokot) 2 tab BID PO Last administered on 07/18/18 08:08; Admin Dose 2 TAB; Start 07/05/18 at 21:00 Polyethylene Glycol (Miralax) 17 gm DAILY PO Last administered on 07/18/18 08:09; Admin Dose 17 GM; Start 07/06/18 at 09:00 Diclofenac Sodium (Voltaren 1% Gel) 2 gm QID TP Last administered on 07/18/18 08:10; Admin Dose 2 GM; Start 07/06/18 at 17:00 Trazodone HCl (Desyrel) 50 mg HS PO Last administered on 07/17/18 21:27; Admin Dose 50 MG; Start 07/07/18 at 21:00 Venlafaxine HCl (Effexor Xr) 300 mg QHS PO Last administered on 07/17/18 21:27; Admin Dose 300 MG; Start 07/07/18 at 21:00 Bisacodyl (Dulcolax Supp) 10 mg DAILY PRN [place] CONSTIPATION Last administered on 07/12/18 20:35; Admin Dose 10 MG; Start 07/07/18 at 16:30 Sodium Biphosphate/ Sodium Phosphate (Fleet Enema) 133 ml DAILY PRN [place] CONSTIPATION Last administered on 07/16/18 20:39; Admin Dose 133 ML; Start 07/07/18 at 16:30 Lorazepam (Ativan) 1 mg Q1H PRN IV seizures; Start 07/09/18 at 10:30 Levetiracetam (Keppra) 500 mg BID PO Last administered on 07/18/18 08:08; Admin Dose 500 MG; Start 07/09/18 at 21:00 Quetiapine Fumarate (Seroquel) 50 mg HS PO Last administered on 07/17/18 21:28; Admin Dose 50 MG; Start 07/10/18 at 21:00 Atorvastatin Calcium (Lipitor) 10 mg QHS PO Last administered on 07/17/18 21:28; Admin Dose 10 MG; Start 07/11/18 at 21:00 Fluoxetine HCl (Prozac) 10 mg DAILY PO Last administered on 07/18/18 08:08; Admin Dose 10 MG; Start 07/12/18 at 09:00 Insulin Aspart (Novolog Insulin Pen) NOVOLOG *MILD* ALGORITHM WITH MEALS BEDTIME SC Last administered on 07/17/18 21:55; Admin Dose 1 UNIT; Start 07/15/18 at 07:55 MASTER JHAVERI 20, 2019 09:48
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
[2018-07-18] MEDS: TIZANIDINE 2 MG TAB PO PRN (12:44)
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
== END 2018-07-18 17:13 | DRG 640 ==
LOC: E/R 15:00 → TEL 19:21 → CANRESERV 20:27 → EDBEDREQ 20:33 → TEL 07-04 01:31
PROVIDERS: ADMIT Family Medicine; ATTEND Internal Medicine
PROC: 5A1955Z Respiratory Ventilation, Greater than 96 Consecutive Hours (ICD-10-PCS; 2018-07-03)
PROC: 0DH63UZ Insertion of Feeding Device into Stomach, Percutaneous Approach (ICD-10-PCS; principal; 2018-07-07 09:00)
PROC: 0DB68ZX Excision of Stomach, Via Natural or Artificial Opening Endoscopic, Diagnostic (ICD-10-PCS; 2018-07-07 09:00)
DX: E86.0 Dehydration (principal); G82.50 Quadriplegia, unspecified; K56.7 Ileus, unspecified; J96.10 Chronic respiratory failure, unspecified whether with hypoxia or hypercapnia; R44.0 Auditory hallucinations; B37.49 Other urogenital candidiasis; G93.49 Other encephalopathy; E87.2 Acidosis; E11.9 Type 2 diabetes mellitus without complications; E78.5 Hyperlipidemia, unspecified; G89.29 Other chronic pain; G40.909 Epilepsy, unspecified, not intractable, without status epilepticus; G62.89 Other specified polyneuropathies; I95.9 Hypotension, unspecified; K59.00 Constipation, unspecified; K26.9 Duodenal ulcer, unspecified as acute or chronic, without hemorrhage or perforation; M54.5 Low back pain; R19.7 Diarrhea, unspecified; R13.10 Dysphagia, unspecified; R00.1 Bradycardia, unspecified; R44.1 Visual hallucinations; Z93.0 Tracheostomy status; Z99.81 Dependence on supplemental oxygen; Z79.891 Long term (current) use of opiate analgesic
CPT/HCPCS: 36415; 36600; 70450; 71045; 74176; 80048; 80053; 80061; 80202; 81001; 82270; 82565; 82803; 82962; 83605; 83735; 84100; 84145; 84443; 84520; 85025; 85610; 87040; 87045; 87081; 87086; 87205; 88305; 92526; 92610; 93005; 94002; 94003; 95819; J0690; J1335; J1450; J1650; J1815; J1885; J2270; J2543; J3370; J3480; J7030; J7040; J7042; J7050